=== PATIENT | female | born 1975 | race Caucasian/White ===

== ENCOUNTER 2023-01-12 13:40 | Outpatient (OUT) | payer OTHER, SELFPAY ==
--- NOTE | 2023-01-12 14:22 | CA_ITS ---
Patient Name Site Name HAYDEN SPENCE [facility] Account No Medical Record Number Age Sex Date Time [id number] [facility]:[id number] F 01/12/2023 13:52 At the Request Of KIEL NAVA ECHOCARDIOGRAM REPORT PROCEDURE: CA ECHO DOPPLER COMPLETE INDICATIONS: Dyspnea on exertion, edema COMPARISON: None. DESCRIPTION: COMPLETE ECHOCARDIOGRAM Real-time transthoracic echocardiography with 2D, M-mode, spectral and color flow Doppler performed. QUALITY: Technical quality was good. LEFT VENTRICLE: Normal chamber size. Normal left ventricular wall thickness. Normal systolic function. LV EF: Normal left ventricular ejection fraction, (>55%). DIASTOLIC: Normal diastolic function. ATRIAL SEPTUM: Visually appears intact. LEFT ATRIUM: Normal chamber size. RIGHT ATRIUM: Normal chamber size. RIGHT VENTRICLE: Normal chamber size. Normal right ventricular systolic function. TRICUSPID VALVE: Normal mobility and thickness. No stenosis with mild regurgitation. No evidence of pulmonary hypertension. RVSP 25 mmHg MITRAL VALVE: Normal mobility and thickness. No evidence of mitral valve stenosis. There is no mitral annular calcification. Trivial mitral regurgitation. AORTIC VALVE: Normal trileaflet appearance. No visible sclerosis. Normal leaflet mobility. No evidence of aortic valve stenosis. No aortic regurgitation. AORTIC ROOT: Normal diameter and appearance. PULMONIC VALVE: Normal thickness and mobility. No stenosis. Trivial regurgitation. PERICARDIUM: No evidence of pericardial effusion. IVC: Collapses with inspirations. IVC is normal in size. PLEURA: CONCLUSION: 1. Normal ventricular function. LVEF is 55%. 2. No significant valvular dysfunction. 3. Normal right-sided pressures. 4. No pericardial effusion. Adult Echocardiography Procedure Report Left Ventricle LVEDD (3.7 - 5.6 cm): 4.42 cm LVESD (2.2 - 4.0 cm): 2.90 cm LVIVS thickness (0.6 - 1.2 cm): 0.72 cm LVPW thickness (0.5 - 1.0 cm): 0.72 cm e': 0.14 m/s E - e': 5.78 LVOT Max Gradient: 4.33 mm[Hg], 4.33 mm[Hg] LVOT Area (cm2): 1.04 m/s Peak Velocity (LVOT): 1.04 m/s, 1.04 m/s Mean Velocity (LVOT): 0.73 m/s LVOT Diameter 1.93 cm Left Atrium LA Volume Index (2D A2C): 19.54 ml/m2 Left Atrium Systolic Dimension: 3.66 cm Mitral Valve MV E to A Ratio: 1.06 Mitral Valve A-Wave Peak Velocity: 0.77 m/s Mitral Valve E-Wave Peak Velocity: 0.82 m/s Right Ventricle Aorta AO Root Diam: 3.02 cm Ascending Ao Diam: 2.80 cm Aortic Valve AoV Area (Peak John): 2.50 cm2, 2.50 cm2 Peak Velocity(Antegrade Flow): 1.21 m/s Peak Gradient(Antegrade Flow): 5.84 mm[Hg] Tricuspid Valve Peak Velocity (Regurgitant Flow): 2.32 m/s, 2.28 m/s Pulmonic Valve Peak Velocity: 0.88 m/s Peak Gradient: 3.36 mm[Hg], 2.81 mm[Hg] Right Atrium Right Atrium Systolic Pressure: 25.46 ml, 25.46 ml Dictated by: Trey Valle M.D. on 01/14/2023 at 19:21 Approved by: Trey Valle M.D. on 01/14/2023 at 19:23
--- NOTE | 2023-01-12 14:24 | US_ITS ---
[facility] [place] [id number] Patient Name: HAYDEN SPENCE MRN: [facility]:[id number] date: 1975 Sex: F Assigned Patient Location: CARD Current Patient Location: Accession/Order Number: [id number] Exam Date: 01/12/2023 14:25 Report Date: 01/13/2023 06:27 At the request of: KIEL NAVA Procedure: US venous doppler LE BI EXAMINATION: US venous doppler LE BI HISTORY: Bilateral Lower Extremity Edema R60.0 COMPARISON: No relevant comparison available. FINDINGS: REGION: Bilateral lower extremities THROMBI: None. COMPRESSIBILITY: Normal compressibility. FLOW: Normal waveform and antegrade flow between 5 and 20 cm/s. OTHER: None. US/US venous doppler LE BI IMPRESSION: 1. No deep vein thrombus within the right or left lower extremity. Electronically authenticated by: SLY SAWYER Date: 01/13/2023 06:27
== END 2023-01-12 13:41 | disposition home or self-care (01) ==
LOC: CARD 13:43
PROVIDERS: Family Provider Internal Medicine; PCP Internal Medicine; Visit Provider Physician Assistant
DX: R60.0 Localized edema (principal); R53.83 Other fatigue; R06.09 Other forms of dyspnea; Z82.49 Family history of ischemic heart disease and other diseases of the circulatory system; I83.93 Asymptomatic varicose veins of bilateral lower extremities
CPT/HCPCS: 93306; 93970